=== PATIENT | male | born 1970 | race Asian ===

== ENCOUNTER 2018-02-11 21:46 | Emergency (ER) | payer OTHER ==
[2018-02-11] MEDS ORDERED: MAG HYDROX/AL HYDROX/SIMETH 30 ML UDCUP PO ONE (22:39)
[2018-02-11] MEDS ORDERED: NS 1,000 ML IV ONE (22:39)
[2018-02-11] MEDS ORDERED: FAMOTIDINE 20 MG/2 ML SDV IVP ONE (22:39)
[2018-02-11] MEDS ORDERED: LIDOCAINE 2% VISCOUS 15 ML UDCUP PO ONE (22:40)
[2018-02-11 22:46] LABS: PLATELET COUNT 148 10^3/uL (150-400)
[2018-02-11] MEDS ORDERED: fentaNYL 100 MCG/2 ML INJ IVP ONE (23:58)
[2018-02-12] MEDS ORDERED: fentaNYL 100 MCG/2 ML INJ IVP ONE (00:03)
[2018-02-12] MEDS ORDERED: IOPAMIDOL (ISOVUE-300) 100 ML BTL ONE (00:10)
--- NOTE | 2018-02-12 01:15 | EDPHY ---
H & P Smoking Status: Never smoked Time Seen by Provider: 02/11/18 22:29 HPI/ROS: CHIEF COMPLAINT: Abdominal pain HISTORY OF PRESENT ILLNESS: 47-year-old male with a history of hypertension and dyslipidemia here with epigastric pain after eating yesterday evening and this evening. States he tried taking Tums without relief. He has no history of similar pain prior to yesterday. He has no history of abdominal surgeries and and no history of renal colic or biliary colic. Denies any history of abdominal aneurysm. He denies any chest pain or shortness of breath. He has noticed no change in his stools and had regular bowel movement today. REVIEW OF SYSTEMS: Constitutional: No fever, no chills. Eyes: No discharge. ENT: No sore throat. Cardiovascular: No chest pain, no palpitations. Respiratory: No cough, no shortness of breath. Gastrointestinal: + abdominal pain, no vomiting. Genitourinary: No hematuria. Musculoskeletal: No back pain. Skin: No rashes. Neurological: No headache. (Klaus Larkin) Physical Exam: General Appearance: Alert and no distress. Eyes: Pupils equal and round no injection. Respiratory: Chest is nontender, lungs are clear to auscultation. Cardiac: regular rate and rhythm. Gastrointestinal: Abdomen is soft and mild epigastric tenderness without peritoneal signs, no masses, bowel sounds normal. Musculoskeletal: Neck is supple and nontender. Extremities have full range of motion and are nontender. Skin: No rashes or lesions. (Klaus Larkin) Constitutional: Initial Vital Signs Temperature (C) 36.4 C 02/11/18 21:49 Heart Rate 67 02/11/18 21:49 Respiratory Rate 26 H 02/11/18 21:49 Blood Pressure 156/97 H 02/11/18 21:49 O2 Sat (%) 98 02/11/18 21:49 O2 Delivery Mode Room Air Allergies/Adverse Reactions: amoxicillin Allergy (Verified 02/11/18 21:51) Home Medications: Medication Instructions Recorded Atorvastatin Calcium 02/11/18 Famotidine [Pepcid 20 MG (*)] 20 mg PO BID 30 Days tab 02/12/18 Medical Decision Making Differential Diagnosis: I considered pancreatitis, cholecystitis, choledocholithiasis, renal colic, appendicitis. Patient here with abdominal pain of unclear etiology. He like he has gastric ulcer, peptic ulcer disease or enteritis. No evidence of acute abdomen for CT or his lab findings. Patient is agreeable with outpatient follow -up. (Klaus Larkin) PHYSICIAN DOCUMENTATION: The patient was evaluated and managed by the Physician Wire Spooler. My co- signature indicates that I have reviewed this chart and I agree with the findings and plan of care as documented. I am the secondary supervising physician. (Sangeetha Nelson) - Data Points Laboratory Results: Laboratory Results 02/11/18 22:40 02/11/18 22:40 02/11/18 02/11/18 02/11/18 23:45 23:31 22:40 WBC RBC Hgb Hct MCV MCH MCHC RDW Plt Count MPV Neut % (Auto) Lymph % (Auto) [place] % (Auto) Eos % (Auto) Baso % (Auto) Nucleat RBC Rel Count Absolute Neuts (auto) Absolute Lymphs (auto) Absolute Monos (auto) Absolute Eos (auto) Absolute Basos (auto) Absolute Nucleated RBC Immature Gran % Immature Gran # Sodium 138 mEq/L mEq/L (135-145) Potassium 3.4 mEq/L mEq/L (3.3-5.0) Chloride 103 mEq/L mEq/L (97-110) Carbon Dioxide 23 mEq/l mEq/l (22-31) Anion Gap 12 mEq/L mEq/L (8-16) BUN 17 mg/dL mg/dL (7-23) Creatinine 0.8 mg/dL mg/dL (0.7-1.3) Estimated GFR > 60 Glucose 168 mg/dL H mg/dL (70-100) Calcium 9.9 mg/dL mg/dL (8.5-10.4) Total Bilirubin 1.8 mg/dL H mg/dL (0.1-1.4) AST 29 IU/L IU/L (17-59) ALT 55 IU/L IU/L (21-72) Alkaline Phosphatase 71 IU/L IU/L (38-126) POC Troponin I 0.01 ng/mL ng/mL (0.00-0.08) Total Protein 6.7 g/dL g/dL (6.3-8.2) Albumin 4.1 g/dL g/dL (3.5-5.0) Lipase 65 IU/L IU/L (23-300) Urine Color YELLOW Urine Appearance CLEAR Urine pH 5.0 (5.0-7.5) Ur Specific [place] 1.016 (1.002-1.030) Urine Protein NEGATIVE (NEGATIVE) Urine Ketones NEGATIVE (NEGATIVE) Urine Blood NEGATIVE (NEGATIVE) Urine Nitrate NEGATIVE (NEGATIVE) Urine Bilirubin NEGATIVE (NEGATIVE) Urine Urobilinogen NEGATIVE EU EU (0.2-1.0) Ur Leukocyte Esterase NEGATIVE (NEGATIVE) Urine RBC 1-3 /hpf /hpf (0-3) Urine WBC 1-3 /hpf /hpf (0-3) Ur Epithelial Cells NONE SEEN /lpf /lpf (NONE-1+) Urine Glucose 1+ H (NEGATIVE) 02/11/18 22:40 WBC 7.32 10^3/uL 10^3/uL (3.80-9.50) RBC 5.20 10^6/uL 10^6/uL (4.40-6.38) Hgb 16.1 g/dL g/dL (13.7-17.5) Hct 44.2 % % (40.0-51.0) MCV 85.0 fL fL (81.5-99.8) MCH 31.0 pg pg (27.9-34.1) MCHC 36.4 g/dL g/dL (32.4-36.7) RDW 12.1 % % (11.5-15.2) Plt Count 148 10^3/uL L 10^3/uL (150-400) MPV 9.6 fL fL (8.7-11.7) Neut % (Auto) 54.4 % % (39.3-74.2) Lymph % (Auto) 37.0 % % (15.0-45.0) [place] % (Auto) 6.8 % % (4.5-13.0) Eos % (Auto) 1.1 % % (0.6-7.6) Baso % (Auto) 0.4 % % (0.3-1.7) Nucleat RBC Rel Count 0.0 % % (0.0-0.2) Absolute Neuts (auto) 3.98 10^3/uL 10^3/uL (1.70-6.50) Absolute Lymphs (auto) 2.71 10^3/uL 10^3/uL (1.00-3.00) Absolute Monos (auto) 0.50 10^3/uL 10^3/uL (0.30-0.80) Absolute Eos (auto) 0.08 10^3/uL 10^3/uL (0.03-0.40) Absolute Basos (auto) 0.03 10^3/uL 10^3/uL (0.02-0.10) Absolute Nucleated RBC 0.00 10^3/uL 10^3/uL (0-0.01) Immature Gran % 0.3 % % (0.0-1.1) Immature Gran # 0.02 10^3/uL 10^3/uL (0.00-0.10) Sodium Potassium Chloride Carbon Dioxide Anion Gap BUN Creatinine Estimated GFR Glucose Calcium Total Bilirubin AST ALT Alkaline Phosphatase POC Troponin I Total Protein Albumin Lipase Urine Color Urine Appearance Urine pH Ur Specific [place] Urine Protein Urine Ketones Urine Blood Urine Nitrate Urine Bilirubin Urine Urobilinogen Ur Leukocyte Esterase Urine RBC Urine WBC Ur Epithelial Cells Urine Glucose Medications Given: Discontinued Medications Al Hydroxide/Mg Hydroxide (Maalox Susp) 30 ml PO EDNOW ONE Stop: 02/11/18 22:40 Last Admin: 02/11/18 22:46 Dose: 30 ml Famotidine (Pepcid) 20 mg IVP EDNOW ONE Stop: 02/11/18 22:40 Last Admin: 02/11/18 22:46 Dose: 20 mg Fentanyl (Sublimaze) 100 mcg IVP EDNOW ONE Stop: 02/11/18 23:59 Last Admin: 02/12/18 00:02 Dose: 100 mcg Fentanyl (Sublimaze) 50 mcg IVP EDNOW ONE Stop: 02/12/18 00:04 Last Admin: 02/12/18 00:06 Dose: Not Given Sodium Chloride (Ns) 1,000 mls @ 0 mls/hr IV EDNOW ONE; Wide Open PRN Reason: Protocol Stop: 02/11/18 22:40 Last Admin: 02/11/18 22:45 Dose: 1,000 mls Lidocaine (Lidocaine 2% Viscous) 5 ml PO EDNOW ONE Stop: 02/11/18 22:41 Last Admin: 02/11/18 22:46 Dose: 5 ml Point of Care Test Results: Chemistry 02/11/18 23:31 POC Troponin I 0.01 ng/mL ng/mL (0.00-0.08) Departure - Departure Disposition: Home, Routine, Self-Care Clinical Impression: Abdominal pain Condition: Good Instructions: Acute Abdominal Pain (ED) Additional Instructions: Please take Pepcid twice a day until you follow up with her primary care physician for further evaluation. Return to the ER for worsening symptoms. Referrals: XANDER PUTNAM [Primary Care Provider] - As per Instructions Prescriptions: Famotidine [Pepcid 20 MG (*)] 20 mg PO BID 30 Days tab
[2018-02-12 01:33] VITALS: BP 134/70
--- NOTE | 2018-02-12 17:33 | CPEKG ---
Test Reason : OPEN Blood Pressure : / mmHG Vent. Rate : 062 BPM Atrial Rate : 061 BPM P-R Int : 191 ms QRS Dur : 110 ms QT Int : 418 ms P-R-T Axes : 025 049 011 degrees QTc Int : 425 ms Sinus rhythm Confirmed by Mireya Stahl ([id number]) on 02/12/2018 5:32:51 PM Referred By: Confirmed By:Mireya Stahl
== END 2018-02-12 01:34 | disposition home or self-care (01) ==
DX: R10.13 Epigastric pain (principal); I10 Essential (primary) hypertension; E78.5 Hyperlipidemia, unspecified
CPT/HCPCS: 84484-PO; 96374; J3010; Q9967